=== PATIENT | male | born 1995 | race Caucasian/White ===

== ENCOUNTER 2025-06-25 04:50 | Emergency (ER) | payer OTHER ==
[~2025-06-25] VITALS: Ht 177.8 cm; Wt 88.5 kg
[~2025-06-25 04:50] MED LIST: HYDACE5 PO; IBUP600 PO; OXYACE5T PO; RXHYDACE PO; RXOXYACE PO
[2025-06-25] MEDS ORDERED: PRED20 PO (07:40)
[2025-06-25] MEDS ORDERED: FAMO20 PO (07:42)
[2025-06-25 07:57] VITALS: BP 145/82
== END 2025-06-25 07:58 | disposition home or self-care (01) ==
LOC: ER 04:50
DX: T78.3XXA Angioneurotic edema, initial encounter (principal); Z59.89 Other problems related to housing and economic circumstances
CPT/HCPCS: 96374; 96375; 99283-25; J2919